=== PATIENT | male | born 1945 | race Caucasian/White ===

== ENCOUNTER 2016-12-04 05:08 | Day surgery (SDC) | payer OTHER ==
[2016-12-04] VITALS (7 sets, daily range): BP systolic 14–168; BP diastolic 72–82
[~2016-12-04] VITALS: Ht 177.8 cm; Wt 77.1 kg
[~2016-12-04 05:08] MED LIST: AMLODIPINE BESY10 MG PO; ASPIR 8181 M1 PO; CHOLESTYRAMINE P4 GM PO; CO Q-10100 MG PO; DELTASONE20 M1 PO; FINASTERIDE5 MG PO; FLAGYL500 MG PO; FOLIC ACID1 MG PO; HYDROCODON-ACE1 EAC7 PO; LISINOPRIL-HCT1 EAC3 PO; LISINOPRIL20 MG PO; LISINOPRIL40 MG PO; LO-DOSE ASPIRIN81 M2 PO; MULTIVITAMIN1 EAC2 PO; NATURAL COD LI1 EACH PO; NATURAL PROSTATE PO; NORVASC10 MG PO; NORVASC5 MG PO; POMEGRANATE250 MG PO; PRAVASTATIN SOD20 MG PO; PREDNISONE20 MG PO; PROBIOTIC1 EAC3 PO; SHARK FIN CART500 MG PO; SHARK LIVER OIL PO; SYNTHROID112 MCG PO; SYNTHROID125 MCG PO; SYNTHROID137 MCG PO; TYLENOL EXTRA500 MG PO; VITAMIN B-125000 MC1 PO; VITAMIN B12-FO1 EACH PO; VITAMIN C1000 MG PO; VITAMIN C500 M1 PO; VITAMIN D31000 UNIT PO; XANAX0.25 MG PO; XANAX0.5 MG PO; XARELTO20 MG PO; XIFAXAN550 MG PO; ZINC50 M2 PO; [UNRECOGNIZED DRUG - OTHER] PO
[2016-12-05 03:51] VITALS: BP 173/84
[2016-12-05 07:10] VITALS: BP 172/93
[2016-12-05 07:17] LABS: EOSINOPHIL (%) 0.2 % (0-5); HEMATOCRIT 41.6 % (38.0-50.0); IMMATURE GRANULOCYTE (%) 0.6 % (0.0-0.7); IMMATURE GRANULOCYTE COUNT 0.1 K/uL; INSTRUMENT ABS NEUTROPHIL CT 16.6 K/uL; LYMPHOCYTE COUNT 2.1 K/uL (1.0-2.8); MCH 30.3 PG (29.0-34.0); MCHC 33.2 G/DL (30.0-36.0); MCV 91.4 FL (86-99); MONOCYTE (%) 12.9 % (3-12); MONOCYTE COUNT 2.8 K/uL (0-0.8); NEUTROPHIL (%) 76.3 % (45-76); NEUTROPHIL COUNT 16.6 K/uL (1.8-6.4); RBC DIS.WIDTH-CV 13.5 % (11.8-14.6); RBC DIS.WIDTH-SD 46.2 % (39-53); RED BLOOD COUNT 4.55 M/uL (4.00-5.50); WHITE BLOOD COUNT 21.7 K/uL (4.1-10.2)
[2016-12-05 07:29] LABS: ALKALINE PHOSPHATASE 62 IU/L (3-129); ANION GAP 10 MEQ/L (2-14); CHLORIDE 102 MEQ/L (99-109); GFR ESTIMATE (CALCULATED) > 59 mL/min/; GLUCOSE 106 mg/dL (70-99); POTASSIUM 3.8 MEQ/L (3.7-5.4); SAMPLE HEMOLYSIS CHECK 0; SAMPLE ICTERIC CHECK 0; SAMPLE LIPEMIA CHECK 0; SODIUM 140 MEQ/L (136-147); TOTAL BILIRUBIN 0.8 MG/DL (0.0-1.0); UREA NITROGEN (BUN) 16 mg/dL (9-23)
[2016-12-05 07:36] LABS: IMM.PLATELET FRACTION 55.6 (1-7)
[2016-12-05 07:41] LABS: PLAT.SUFFICIENCY VERY DECREASED; PLATELET COUNT 46 K/uL (156-360)
[2016-12-05] MEDS ORDERED: TRAMADOL HCL50 MG PO (09:33)
== END 2016-12-05 11:05 | disposition home or self-care (01) ==
LOC: SDC 05:08 → 2SOUTH 09:55 → ENRESERV 10:00 → SDC 15:36 → 2EAST 16:08
PROVIDERS: Surgery
PROC: 0YU54JZ Supplement Right Inguinal Region with Synthetic Substitute, Percutaneous Endoscopic Approach (ICD-10-PCS; principal; 2016-12-04)
DX: K40.91 Unilateral inguinal hernia, without obstruction or gangrene, recurrent (principal); I10 Essential (primary) hypertension; E03.9 Hypothyroidism, unspecified; N40.0 Benign prostatic hyperplasia without lower urinary tract symptoms; Z85.850 Personal history of malignant neoplasm of thyroid; Z86.73 Personal history of transient ischemic attack (TIA), and cerebral infarction without residual deficits; Z79.82 Long term (current) use of aspirin; Z90.81 Acquired absence of spleen; Z87.891 Personal history of nicotine dependence
CPT/HCPCS: 80053; 85025; C1781; G0378; J0330; J0690; J1100; J2250; J2405; J3010; J3480

== ENCOUNTER 2016-12-09 13:25 | Inpatient (IN) | payer OTHER ==
[~2016-12-09] VITALS: Ht 177.8 cm; Wt 79.1 kg
[~2016-12-09 13:25] MED LIST changes: +TRAMADOL HCL50 MG PO
[2016-12-09 14:21] LABS: ADD MIUA? NO; BILIRUBIN NEGATIVE; BLOOD NEGATIVE; COLOR YELLOW ((YELLOW)); GLUCOSE (STRIP) NEGATIVE; KETONES 5; LEUKOCYTES NEGATIVE; NITRITE NEGATIVE; PROTEIN (STRIP) NEGATIVE; SPECIFIC GRAVITY 1.013 (1.000-1.030); UROBILINOGEN 0.2 MG/DL (0.2-1.0)
[2016-12-09 14:22] LABS: UCUL ADDED? NO
[2016-12-09 14:51] LABS: CHLORIDE 92 mEq/L (99-109); POTASSIUM 3.2 mEq/L (3.7-5.4)
[2016-12-09 14:53] LABS: GLUCOSE 115 mg/dL (70-99)
[2016-12-09 14:54] LABS: ANION GAP 12 MEQ/L (2-14); SODIUM 125 mEq/L (136-147)
[2016-12-09 14:56] LABS: GFR ESTIMATE (CALCULATED) 58 mL/min/
[2016-12-09 14:57] LABS: UREA NITROGEN (BUN) 24 mg/dL (9-23)
[2016-12-09 15:03] LABS: HEMATOCRIT 37.8 % (38.0-50.0); MCH 31.3 PG (29.0-34.0); MCV 86.9 FL (86-99); RBC DIS.WIDTH-SD 41.4 % (39-53); RED BLOOD COUNT 4.35 M/uL (4.00-5.50); WHITE BLOOD COUNT 21.1 K/uL (4.1-10.2)
[2016-12-09 15:19] LABS: IMM.PLATELET FRACTION 62.1 (1-7); PLAT.SUFFICIENCY VERY DECREASED; PLATELET COUNT 47 K/uL (156-360)
[2016-12-09] MEDS ORDERED: TYLENOL EXTRA500 MG PO (17:18)
[2016-12-09] MEDS ORDERED: COLACE100 MG PO (17:18)
[2016-12-09 19:59] LABS: HEMATOCRIT 35.5 % (38.0-50.0); MCH 30.9 PG (29.0-34.0); MCHC 35.5 G/DL (30.0-36.0); RBC DIS.WIDTH-CV 13.2 % (11.8-14.6); RBC DIS.WIDTH-SD 41.2 % (39-53); RED BLOOD COUNT 4.08 M/uL (4.00-5.50); WHITE BLOOD COUNT 18.9 K/uL (4.1-10.2)
[2016-12-09 20:01] LABS: CHLORIDE 97 mEq/L (99-109); POTASSIUM 3.1 mEq/L (3.7-5.4)
[2016-12-09 20:02] LABS: SODIUM 132 mEq/L (136-147)
[2016-12-09 20:03] LABS: GLUCOSE 126 mg/dL (70-99)
[2016-12-09 20:04] LABS: ANION GAP 13 MEQ/L (2-14)
[2016-12-09 20:07] LABS: GFR ESTIMATE (CALCULATED) 58 mL/min/; UREA NITROGEN (BUN) 24 mg/dL (9-23)
[2016-12-09 20:12] VITALS: BP 119/62
[2016-12-09 20:38] LABS: ANISOCYTOSIS 1+; EOSINOPHIL (%) 0.1 % (0-5); GIANT PLATELETS 2+; IMM.PLATELET FRACTION 57.3 (1-7); IMMATURE GRANULOCYTE (%) 0.4 % (0.0-0.7); IMMATURE GRANULOCYTE COUNT 0.1 K/uL; LYMPHOCYTE COUNT 1.3 K/uL (1.0-2.8); MONOCYTE (%) 13.1 % (3-12); MONOCYTE COUNT 2.5 K/uL (0-0.8); NEUTROPHIL (%) 79.3 % (45-76); PLAT.SUFFICIENCY VERY DECREASED; PLATELET COUNT 48 K/uL (156-360)
[2016-12-09 22:00] VITALS: BP 110/68
[2016-12-10 03:47] VITALS: BP 110/55
[2016-12-10 07:08] LABS: EOSINOPHIL (%) 0.4 % (0-5); EOSINOPHIL COUNT 0.1 K/uL (0-0.3); HEMATOCRIT 33.4 % (38.0-50.0); IMMATURE GRANULOCYTE (%) 0.5 % (0.0-0.7); IMMATURE GRANULOCYTE COUNT 0.1 K/uL; INSTRUMENT ABS NEUTROPHIL CT 8.8 K/uL; LYMPHOCYTE COUNT 2.3 K/uL (1.0-2.8); MCH 31.8 PG (29.0-34.0); MCHC 35.6 G/DL (30.0-36.0); MCV 89.3 FL (86-99); MONOCYTE (%) 19.1 % (3-12); MONOCYTE COUNT 2.6 K/uL (0-0.8); NEUTROPHIL (%) 63.5 % (45-76); NEUTROPHIL COUNT 8.8 K/uL (1.8-6.4); RBC DIS.WIDTH-CV 13.6 % (11.8-14.6); RED BLOOD COUNT 3.74 M/uL (4.00-5.50); WHITE BLOOD COUNT 13.8 K/uL (4.1-10.2)
[2016-12-10 07:24] LABS: ALKALINE PHOSPHATASE 47 IU/L (3-129); ANION GAP 9 MEQ/L (2-14); GFR ESTIMATE (CALCULATED) > 59 mL/min/; GLUCOSE 84 mg/dL (70-99); MAGNESIUM 2.1 mg/dl (1.3-2.7); POTASSIUM 3.7 MEQ/L (3.7-5.4); SAMPLE HEMOLYSIS CHECK 0; SAMPLE ICTERIC CHECK 0; SAMPLE LIPEMIA CHECK 0; TOTAL BILIRUBIN 0.9 MG/DL (0.0-1.0); UREA NITROGEN (BUN) 24 mg/dL (9-23)
[2016-12-10 07:25] LABS: CHLORIDE 108 MEQ/L (99-109); SODIUM 142 MEQ/L (136-147)
[2016-12-10 07:43] LABS: HEMATOLOGY COMMENT 1 SMEAR COMPATIBLE; IMM.PLATELET FRACTION 56.3 (1-7); PLAT.SUFFICIENCY DECREASED; PLATELET COUNT 46 K/uL (156-360)
[2016-12-10 09:00] VITALS: BP 132/60
[2016-12-10 12:00] VITALS: BP 110/59
[2016-12-10 16:13] VITALS: BP 128/64
[2016-12-10 19:39] VITALS: BP 131/62
[2016-12-10 23:26] VITALS: BP 112/55
[2016-12-11 04:02] VITALS: BP 122/60
[2016-12-11 07:06] LABS: HEMATOCRIT 33.6 % (38.0-50.0); MCH 30.6 PG (29.0-34.0); MCHC 33.6 G/DL (30.0-36.0); MCV 91.1 FL (86-99); RBC DIS.WIDTH-CV 13.8 % (11.8-14.6); RBC DIS.WIDTH-SD 46.8 % (39-53); RED BLOOD COUNT 3.69 M/uL (4.00-5.50); WHITE BLOOD COUNT 13.3 K/uL (4.1-10.2)
[2016-12-11 07:17] LABS: ANION GAP 10 MEQ/L (2-14); CHLORIDE 107 MEQ/L (99-109); GFR ESTIMATE (CALCULATED) > 59 mL/min/; GLUCOSE 84 mg/dL (70-99); POTASSIUM 3.5 MEQ/L (3.7-5.4); SAMPLE HEMOLYSIS CHECK 0; SAMPLE ICTERIC CHECK 0; SAMPLE LIPEMIA CHECK 0; SODIUM 141 MEQ/L (136-147); UREA NITROGEN (BUN) 18 mg/dL (9-23)
[2016-12-11 07:19] LABS: PLAT.SUFFICIENCY DECREASED; PLATELET COUNT 43 K/uL (156-360)
[2016-12-11 08:12] VITALS: BP 137/70
[2016-12-11] MEDS ORDERED: FLOMAX0.4 MG PO (11:39)
[2016-12-11] MEDS ORDERED: AUGMENTIN875 MG PO (11:39)
[2016-12-11 12:14] VITALS: BP 126/70
== END 2016-12-11 16:36 | disposition home or self-care (01) | DRG 726 ==
LOC: EME 13:25 → EDOF 18:10 → 3EAST 18:10 → ENRESERV 18:32 → 3EAST 20:04
PROVIDERS: Hospitalist; Physician Assistant Medical; Surgery
DX: N40.1 Benign prostatic hyperplasia with lower urinary tract symptoms (principal); R33.8 Other retention of urine; N13.30 Unspecified hydronephrosis; E87.1 Hypo-osmolality and hyponatremia; D69.3 Immune thrombocytopenic purpura; E89.0 Postprocedural hypothyroidism; I10 Essential (primary) hypertension; J45.909 Unspecified asthma, uncomplicated; N32.3 Diverticulum of bladder; N48.89 Other specified disorders of penis; N50.89 Other specified disorders of the male genital organs; Z87.891 Personal history of nicotine dependence; Z85.850 Personal history of malignant neoplasm of thyroid; Z86.73 Personal history of transient ischemic attack (TIA), and cerebral infarction without residual deficits; Z90.81 Acquired absence of spleen; Z79.82 Long term (current) use of aspirin; Z88.1 Allergy status to other antibiotic agents
CPT/HCPCS: 36415; 71020; 71250; 74176; 80048; 80048 91; 80053; 81003; 82436; 83605; 83735; 83930; 83935; 84100; 84133; 84300; 85025; 85027; 87040; 99281; 99285; J2543; J7030

== ENCOUNTER 2017-02-09 00:47 | Observation (INO) | payer OTHER ==
[~2017-02-09] VITALS: Ht 177.8 cm; Wt 76.9 kg
[~2017-02-09 00:47] MED LIST changes: +AUGMENTIN875 MG PO; +COLACE100 MG PO; +FLOMAX0.4 MG PO
[2017-02-09 01:48] LABS: CHLORIDE 96 mEq/L (99-109); POTASSIUM 3.6 mEq/L (3.7-5.4); SODIUM 130 mEq/L (136-147)
[2017-02-09 01:49] LABS: GLUCOSE 151 mg/dL (70-99)
[2017-02-09 01:50] LABS: HEMATOCRIT 40.2 % (38.0-50.0); MCH 31.4 PG (29.0-34.0); MCHC 34.1 G/DL (30.0-36.0); RBC DIS.WIDTH-CV 13.6 % (11.8-14.6); RBC DIS.WIDTH-SD 46.1 % (39-53); RED BLOOD COUNT 4.37 M/uL (4.00-5.50); WHITE BLOOD COUNT 20.6 K/uL (4.1-10.2)
[2017-02-09 01:51] LABS: ANION GAP 13 MEQ/L (2-14)
[2017-02-09 01:53] LABS: GFR ESTIMATE (CALCULATED) > 59 mL/min/
[2017-02-09 01:54] LABS: UREA NITROGEN (BUN) 17 mg/dL (9-23)
[2017-02-09 02:38] LABS: IMM.PLATELET FRACTION 62.7 (1-7); PLAT.SUFFICIENCY VERY DECREASED
[2017-02-09 02:53] LABS: PLATELET COUNT 39 K/uL (156-360)
[2017-02-09 09:23] VITALS: BP 173/83
[2017-02-09 11:07] VITALS: BP 152/75
[2017-02-09 16:01] VITALS: BP 130/76
[2017-02-09] MEDS ORDERED: COLACE100 MG PO (17:19)
[2017-02-09 19:12] VITALS: BP 146/73
[2017-02-09 23:57] VITALS: BP 110/62
[2017-02-10 06:32] LABS: CHLORIDE 108 MEQ/L (99-109)
[2017-02-10 06:50] LABS: HEMATOCRIT 32.2 % (38.0-50.0); MCH 31.5 PG (29.0-34.0); MCHC 33.9 G/DL (30.0-36.0); MCV 93.1 FL (86-99); RBC DIS.WIDTH-CV 13.9 % (11.8-14.6); RBC DIS.WIDTH-SD 47.8 % (39-53)
[2017-02-10 06:54] LABS: PLAT.SUFFICIENCY DECREASED; PLATELET COUNT 31 K/uL (156-360)
[2017-02-10 06:59] LABS: RED BLOOD COUNT 3.46 M/uL (4.00-5.50)
[2017-02-10 07:01] LABS: SODIUM 141 MEQ/L (136-147)
[2017-02-10 07:03] VITALS: BP 108/59
[2017-02-10 08:07] LABS: ANION GAP 6 MEQ/L (2-14); GFR ESTIMATE (CALCULATED) > 59 mL/min/; SAMPLE HEMOLYSIS CHECK 0; SAMPLE ICTERIC CHECK 0; SAMPLE LIPEMIA CHECK 0; UREA NITROGEN (BUN) 16 mg/dL (9-23)
[2017-02-10 08:09] LABS: GLUCOSE 90 mg/dL (70-99)
[2017-02-10 11:11] VITALS: BP 151/70
== END 2017-02-10 14:09 | disposition home or self-care (01) ==
LOC: EME 00:47 → EDOF 07:30 → ENRESERV 07:35 → EDOF 07:53 → 5WEST 08:52 → ENPENDDIS 02-10 12:13 → 5WEST 02-10 14:09
PROVIDERS: Nurse Practitioner Adult Health
DX: R31.0 Gross hematuria (principal); N40.1 Benign prostatic hyperplasia with lower urinary tract symptoms; R33.8 Other retention of urine; D69.3 Immune thrombocytopenic purpura; I10 Essential (primary) hypertension; E03.9 Hypothyroidism, unspecified; Z90.79 Acquired absence of other genital organ(s); Z98.890 Other specified postprocedural states; Z87.440 Personal history of urinary (tract) infections; Z86.73 Personal history of transient ischemic attack (TIA), and cerebral infarction without residual deficits; Z87.19 Personal history of other diseases of the digestive system; Z79.82 Long term (current) use of aspirin; Z91.09 Other allergy status, other than to drugs and biological substances; Z88.1 Allergy status to other antibiotic agents; Z88.8 Allergy status to other drugs, medicaments and biological substances
CPT/HCPCS: 80048; 81003; 85027; 86850; 86900; 86901; 93005; 99281; 99285; G0378; J7030